=== PATIENT | female | born 1990 | race American Indian/Alaskan Native ===

== ENCOUNTER 2020-04-11 12:23 | Emergency (ER) | payer MEDICAID ==
[2020-04-11] MEDS ORDERED: ALBUTEROL 2.5 MG/3 ML NEBU IH ONE ×4 (13:41→19:57)
[2020-04-11] MEDS ORDERED: IPRATROPIUM 0.02% NEBU 2.5 ML IH ONE ×2 (13:41→17:19)
[2020-04-11] MEDS ORDERED: SODIUM CHLORIDE 0.9% 1000 ML 1,000 ML IV ONE (13:46)
[2020-04-11] MEDS ORDERED: MAGNESIUM SULFATE 2 GM/50 ML BAG IV ONE (13:47)
--- NOTE | 2020-04-11 13:47 | Emergency Department Report ---
ED Shortness of Breath HPI - General Chief Complaint: Dyspnea/Respdistress Stated Complaint: KENY Time Seen by Provider: 04/11/20 12:51 Source: patient Mode of arrival: Ambulatory Limitations: No Limitations - History of Present Illness Initial Comments: 29-year-old -[place] female presents to the emergency room complaining of shortness of breath and having an asthma attack. Patient states is been going on for about a day and a half. She reports that prior to arrival here she did go to an urgent care got a injection of steroids and a treatment. Patient states the time she got to [facility] and realized that their system was down she started having another full asthma attack. Patient then presented here to the emergency room for assistance. Patient does admit to postnasal drip, nasal congestion rhinorrhea. She admits to dry mouth. She states she was given herself nebulizer treatments but has run out from home. Patient denies any fever or chills no nausea no vomiting. She does states she has a cough. MD Complaint: shortness of breath, cough Consistency: constant Improves With: bronchodilators Worsens With: lying flat, coughing, inspiration Known History Of: asthma Context: recent URI Associated Symptoms: cough, sputum production, other (Nasal congestion, rhinorrhea) Treatments Prior to Arrival: bronchodilator, other (Steroids) - Related Data Home Oxygen Therapy: No Previous Rx's Medication Instructions Recorded Last Taken Type Albuterol Sulfate [Albuterol 0.63% 0.63 mg IH TID PRN #270 ml 04/11/20 Unknown Rx NEBS] Albuterol Sulfate [Proair 2 puff IH QID PRN #1 aer.pow.ba 04/11/20 Unknown Rx Respiclick] Beclomethasone Dipropionate [Qvar 1 puff IH BID #1 hfa.aeroba 04/11/20 Unknown Rx Redihaler] Cetirizine HCl [ZyrTEC 10mg cap] 10 mg PO QDAY #30 capsule 04/11/20 Unknown Rx Fluticasone [Flonase] 1 spray NS QDAY #1 bottle 04/11/20 Unknown Rx Prednisone [predniSONE 10 mg 10 mg PO .TAPER #1 tab.ds.pk 04/11/20 Unknown Rx (6-Day Pack, 21 Tabs)] Allergies Allergy/AdvReac Type Severity Reaction Status Date / Time azithromycin Allergy Swelling Verified 04/11/20 12:40 ED Review of Systems ROS: Stated complaint: KENY Other details as noted in HPI Comment: All other systems reviewed and negative ED Past Medical Hx - Past Medical History Previous Medical History?: Yes Hx Asthma: Yes - Surgical History Past Surgical History?: No - Social History Smoking Status: Never Smoker Substance Use Type: None - Medications Home Medications: Home Medications Medication Instructions Recorded Confirmed Last Taken Type Albuterol Sulfate [Albuterol 0.63% 0.63 mg IH TID PRN #270 ml 04/11/20 Unknown Rx NEBS] Albuterol Sulfate [Proair 2 puff IH QID PRN #1 aer.pow.ba 04/11/20 Unknown Rx Respiclick] Beclomethasone Dipropionate [Qvar 1 puff IH BID #1 hfa.aeroba 04/11/20 Unknown Rx Redihaler] Cetirizine HCl [ZyrTEC 10mg cap] 10 mg PO QDAY #30 capsule 04/11/20 Unknown Rx Fluticasone [Flonase] 1 spray NS QDAY #1 bottle 04/11/20 Unknown Rx Prednisone [predniSONE 10 mg 10 mg PO .TAPER #1 tab.ds.pk 04/11/20 Unknown Rx (6-Day Pack, 21 Tabs)] ED Physical Exam - General Limitations: No Limitations General appearance: alert, in no apparent distress, other (Sitting tripod) - Head Head exam: Present: atraumatic, normocephalic - Eye Eye exam: Present: normal appearance - ENT ENT exam: Present: mucous membranes moist - Neck Neck exam: Present: normal inspection, full ROM - Respiratory Respiratory exam: Present: wheezes, rhonchi, accessory muscle use - Cardiovascular Cardiovascular Exam: Present: tachycardia - GI/Abdominal GI/Abdominal exam: Present: soft. Absent: distended, tenderness - Extremities Exam Extremities exam: Present: normal inspection, full ROM - Back Exam Back exam: Present: normal inspection, full ROM - Neurological Exam Neurological exam: Present: alert, oriented X3, normal gait - Psychiatric Psychiatric exam: Present: normal affect, normal mood - Skin Skin exam: Present: warm, dry, intact, normal color. Absent: rash ED Course Vital Signs 04/11/20 04/11/20 04/11/20 12:39 14:01 16:50 Temperature 99.1 F Pulse Rate 135 H 124 H Pulse Rate [ 126 H Anterior Bilateral Throughout] Respiratory 22 23 Rate Respiratory 24 Rate [Anterior Bilateral Throughout] Blood Pressure 132/79 Blood Pressure 136/77 [Right] O2 Sat by Pulse 94 98 Oximetry - Reevaluation(s) Reevaluation #1: 04/11/20 16:38 Patient reports that she still having mid upper back pain and wheezing is worse with movement. 04/11/20 16:38 Therefore this provider has ordered a chest x-ray and another 5 mg of albuterol and .3 mg of subcu epi 04/11/20 16:39 ED Medical Decision Making - Radiology Data Radiology results: report reviewed [facility] [address] [place] [address] XRay Report Signed Patient: NELY VASQUEZ MR# : [id number] : 1990 Acct:[id number] Age/Sex: 29 / F ADM Date: 04/11/20 Loc: ED Attending Dr: Ordering Physician: BLANCA BROWNE Date of Service: 04/11/20 Procedure(s): XR chest 1V ap Accession Number(s): [id number] cc: BLANCA BROWNE Fluoro Time In Minutes: CHEST 1 VIEW INDICATION / CLINICAL INFORMATION: wheezing and sob. FINDINGS: SUPPORT DEVICES: None. HEART / MEDIASTINUM: No significant abnormality. LUNGS / PLEURA: No significant pulmonary or pleural abnormality. No pneumothorax. ADDITIONAL FINDINGS: No significant additional findings. IMPRESSION: 1. No acute findings. Signer Name: Arie Hernandez MD Signed: 04/11/2020 6:27 PM Workstation Name: [id number] Transcribed By: BC Dictated By: Arie Hernandez MD Electronically Authenticated By: Arie Hernandez MD Signed Date/Time: 04/11/201826 DD/ 25 TD/TT: - Medical Decision Making 29-year-old -Cro[place] female presents to the emergency room complaining of shortness of breath and having an asthma attack. Patient states is been going on for about a day and a half. She reports that prior to arrival here she did go to an urgent care got a injection of steroids and a treatment. Patient states the time she got to [facility] and realized that their system was down she started having another full asthma attack. Patient then presented here to the emergency room for assistance. Patient does admit to postnasal drip, nasal congestion rhinorrhea. She admits to dry mouth. She states she was given herself nebulizer treatments but has run out from home. Patient denies any fever or chills no nausea no vomiting. She does states she has a cough. Orders for albuterol inhalation, Atrovent 0.5 inhalation, magnesium 2 g ER IV rider and 1 L of normal saline. Patient has been placed on monitor. Discussed case with Dr. Stoner he recommend another 5 mg albuterol and another 1 mg of Atrovent. Chest x-ray was ordered shows no acute cardiopulmonary abnormalities. Patient is requesting antinausea medication she is given Zofran she is requesting pain medication she is given Toradol 15 mg IV. Patient reports that she is breathing better but she still having back pain. Patient does admit that she smokes weed and has not smoked in 3 days. Patient be discharged home on albuterol solution for her nebulizer, Qvar steroid to take twice a day daily. And she will get a refill on her albuterol inhaler. Patient is instructed to discontinue smoking weed as this can also aggravate her asthma. Recommend patient take [id number] Zyrtec's and Flonase for allergic rhinitis. Critical care attestation.: If time is entered above; I have spent that time in minutes in the direct care of this critically ill patient, excluding procedure time. ED Disposition Clinical Impression: Asthma exacerbation attacks Qualifiers: Asthma severity: moderate Allergic rhinitis Qualifiers: Allergic rhinitis trigger: unspecified Allergic rhinitis seasonality: seasonal Qualified Code(s): J30.2 - Other seasonal allergic rhinitis Disposition: DC-01 TO HOME OR SELFCARE Is pt being admited?: No Does the pt Need Aspirin: No Condition: Stable Instructions: Asthma (ED), Allergic Rhinitis (ED) Additional Instructions: Take your medications as prescribed. Please discontinue smoking cannabis. Follow-up with the grain merchandising manager I have listed their information below for your convenience. Prescriptions: Albuterol Sulfate [Albuterol 0.63% NEBS] 0.63 mg IH TID PRN #270 ml PRN Reason: Wheezing Fluticasone [Flonase] 1 spray NS QDAY #1 bottle Prednisone [predniSONE 10 mg (6-Day Pack, 21 Tabs)] 10 mg PO .TAPER #1 tab.ds.pk Albuterol Sulfate [Proair Respiclick] 2 puff IH QID PRN #1 aer.pow.ba PRN Reason: Wheezing Beclomethasone Dipropionate [Qvar Redihaler] 1 puff IH BID #1 hfa.aeroba Cetirizine HCl [ZyrTEC 10mg cap] 10 mg PO QDAY #30 capsule Referrals: ANKIT JONES MD [Staff Physician] - 3-5 Days JENNIFER BLAIR MD [Staff Physician] - 3-5 Days Forms: Work/School Release Form(ED)
[2020-04-11] MEDS ORDERED: ACETAMINOPHEN 325 MG TAB PO ONE (14:03)
[2020-04-11] MEDS ORDERED: EPINEPHrine/PF 1 MG/1 ML INJ SUB-Q ONE (16:39)
[2020-04-11] MEDS ORDERED: PROMETHAZINE 25 MG TAB PO ONE (16:52)
[2020-04-11] MEDS ORDERED: dexAMETHasone 20 MG/5 ML VIAL IV ONE (17:19)
[2020-04-11 17:54] LABS: HCG Qualitative,Urine Negative (Negative)
[2020-04-11] MEDS ORDERED: ONDANSETRON 4 MG/2 ML INJ IV ONE ×2 (18:23→21:07)
--- NOTE | 2020-04-11 18:32 | XRay Report ---
CHEST 1 VIEW INDICATION / CLINICAL INFORMATION: wheezing and sob. FINDINGS: SUPPORT DEVICES: None. HEART / MEDIASTINUM: No significant abnormality. LUNGS / PLEURA: No significant pulmonary or pleural abnormality. No pneumothorax. ADDITIONAL FINDINGS: No significant additional findings. IMPRESSION: 1. No acute findings. Signer Name: Arie Hernandez MD Signed: 04/11/2020 6:27 PM Workstation Name: [id number]
[2020-04-11] MEDS ORDERED: KETOROLAC 30 MG/1 ML INJ IV ONE (18:33)
[2020-04-11 18:44] VITALS: BP 133/75
[2020-04-11] MEDS ORDERED: MORPHINE 4 MG/1 ML INJ IV ONE (21:07)
[2020-04-11 21:55] LABS: Hematocrit 39.9 % (30.3-42.9); Hemoglobin 14.1 gm/dl (10.1-14.3); Mean Corpuscular HGB Conc 35 % (30-34); Mean Corpuscular Volume 83 fl (79-97); Platelet Count 357 K/mm3 (140-440); Red Cell Distribution Width 15.1 % (13.2-15.2)
[2020-04-11 22:06] LABS: Alanine Aminotransferase 27 units/L (7-56); Albumin 4.3 g/dL (3.9-5); Blood Urea Nitrogen 4 mg/dL (7-17); Calcium 9.3 mg/dL (8.4-10.2); Hemolysis Index 9
[2020-04-11 22:20] LABS: BUN/Creatinine Ratio 7
[2020-04-11 22:51] LABS: Basophils % (Manual) 0 % (0.0-1.8); Eosinophils % (Manual) 0 % (0.0-4.3); Total Cells Counted 100
[2020-04-11 23:04] LABS: RBC Morphology Normal
== END 2020-04-12 00:10 | disposition home or self-care (01) ==
LOC: ED 12:23
DX: J45.901 Unspecified asthma with (acute) exacerbation (principal); Z88.1 Allergy status to other antibiotic agents; Z79.899 Other long term (current) drug therapy
CPT/HCPCS: 36415; 71045; 80053; 81025; 84703; 85007; 85025; 94640; 96365; 96375; 96376; 99284; J1100; J1885; J2270; J2405; J3475; J7030; Q0169; 94644